=== PATIENT | female | born 1950 | race Caucasian/White ===

== ENCOUNTER 2020-06-12 14:49 | Observation (INO) ==
[2020-06-12 15:31] LABS: ABS Eosinophils 0.2 10^3/ul (0-0.6); ABS Lymphocytes 2.1 10^3/ul (1.0-4.8); ABS Monocytes 0.6 10^3/ul (0-0.8); ABS Neutrophils 4.6 10^3/ul (1.5-7.7); Eosinophil % 2.8 %; Hematocrit 40 % (35-47); Hemoglobin 13.3 g/dL (12.0-16.0); Mean Corpuscular HGB Conc 34 g/dL (31-36); Mean Corpuscular Hemoglobin 30 pg (27-31); Mean Corpuscular Volume 90 fL (80-97); Platelet Count 230 10^3/uL (150-450); Red Blood Count 4.43 10^6 /uL (3.70-4.87); Red Cell Distribution Width 14 % (10-15); White Blood Count 7.5 10^3/uL (3.5-10.8)
[2020-06-12 15:40] LABS: INR 1.01 (0.82-1.09)
[2020-06-12 15:56] LABS: Troponin I 0.03 ng/mL (<0.03)
[2020-06-12 16:15] LABS: ALT 10 U/L (7-52); AST 18 U/L (13-39); Albumin/Globulin Ratio 1.7 (1-3); Alkaline Phosphatase 56 U/L (34-104); Anion Gap 6 mmol/L (2-11); BUN/Creatinine Ratio 21.9 (8-20); Blood Urea Nitrogen 21 mg/dL (6-24); CO2 Carbon Dioxide 25 mmol/L (22-32); Calcium 9.1 mg/dL (8.6-10.3); Chloride 109 mmol/L (101-111); EGFR African American 69.5 (>60); EGFR Non-African American 57.5 (>60); Globulin 2.4 g/dL (2-4); Glucose 93 mg/dL (70-100); Potassium 4.1 mmol/L (3.5-5.0); Sodium 140 mmol/L (135-145); Total Protein 6.4 g/dL (6.4-8.9)
[2020-06-12 18:50] LABS: Troponin I 0.03 ng/mL (<0.03)
[2020-06-12] MEDS ORDERED: Iodixanol (CONTRAST) 320 MG/ML 100 ML SDV IV ONE (19:20)
[2020-06-12] MEDS ORDERED: Al Hydrox/Mg Hydrox/Simet LIQ 30 ML UDC PO PRN (20:57)
[2020-06-12 22:20] LABS: Cholesterol 144 mg/dL; HDL Cholesterol 56.2 mg/dL; LDL Cholesterol 74 mg/dL; Triglycerides 70 mg/dL
[2020-06-12 22:24] LABS: Troponin I 0.03 ng/mL (<0.03)
[2020-06-13] MEDS ORDERED: Coenzyme Q10 CAP (NF) ** ENTER STREGNTH IN LABEL DIRECTIONS PO SCH (09:00)
[2020-06-13] MEDS ORDERED: Aspirin EC 81 mg TAB.EC (enteric coated) PO SCH (09:00)
[2020-06-13] MEDS ORDERED: Regadenoson 0.4 MG/5 ML SYRINGE ONE (14:14)
[2020-06-13] MEDS ORDERED: Aminophylline 25 MG/ML VIAL ONE (14:14)
[2020-06-13 16:26] VITALS: BP 121/58
== END 2020-06-13 16:55 | disposition home or self-care (01) ==
LOC: ED 14:49 → MEDTELE 14:49
PROVIDERS: ADMIT Pediatrics; ATTEND Student in an Organized Health Care Education/Training Program